=== PATIENT | female | born 1975 | race Caucasian/White ===

== ENCOUNTER 2021-11-22 18:26 | Emergency (ER) | payer SELFPAY | END 2021-11-22 21:40 | disposition home or self-care (01) | LOC: ERS 18:26 | DX: S00.01XA Abrasion of scalp, initial encounter (principal); H57.04 Mydriasis; F17.210 Nicotine dependence, cigarettes, uncomplicated; W18.39XA Other fall on same level, initial encounter | CPT/HCPCS: 70450 ==